=== PATIENT | male | born 2000 | race African-American/Black ===

== ENCOUNTER 2023-12-08 18:19 | Emergency (ER) | payer SELFPAY ==
[2023-12-08 18:35] VITALS: BP 126/79; PULSE 68; RESP 18; TEMP 36.6; O2SAT 98; BMI 18.1
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
[2023-12-08 19:45] VITALS: BP 126/79; PULSE 68; RESP 18; TEMP 36.6; O2SAT 98
== END 2023-12-08 19:51 | disposition home or self-care (01) ==
PROVIDERS: Emergency Provider Nurse Practitioner Family
DX: S16.1XXA Strain of muscle, fascia and tendon at neck level, initial encounter (principal); S46.911A Strain of unspecified muscle, fascia and tendon at shoulder and upper arm level, right arm, initial encounter; S29.012A Strain of muscle and tendon of back wall of thorax, initial encounter; V49.40XA Driver injured in collision with unspecified motor vehicles in traffic accident, initial encounter; Y92.410 Unspecified street and highway as the place of occurrence of the external cause
CPT/HCPCS: 72040; 73030; 99203; 99212; G0463